=== PATIENT | male | born 1945 | race Caucasian/White ===

== ENCOUNTER 2018-10-13 11:12 | Outpatient (REF) | payer MEDICARE, BC, SELFPAY ==
[2018-10-13 19:55] LABS: Anion Gap 7.1 mmol/L (3-11); BUN 19 mg/dL (7-18); CO2 29.9 mmol/L (21.0-32.0); CREATININE 0.94 mg/dL (0.70-1.30); Chloride 102 mmol/L (98-107); Glucose 111 mg/dL (70-100); Potassium 4.2 mmol/L (3.5-5.1); Sodium 139 mmol/L (136-145)
== END 2018-10-13 11:32 ==
LOC: NCHCN 11:12
PROVIDERS: PCP Physician Assistant Medical; Visit Provider Physician Assistant Medical
DX: I10 Essential (primary) hypertension (principal)
CPT/HCPCS: 80048

== ENCOUNTER 2019-10-29 17:11 | Outpatient (REF) | payer MEDICARE, BC, SELFPAY ==
[2019-10-29 19:57] LABS: Anion Gap 9.1 mmol/L (3-11); BUN 17 mg/dL (7-18); CO2 28.9 mmol/L (21.0-32.0); CREATININE 1.14 mg/dL (0.70-1.30); Calcium 9.3 mg/dL (8.5-10.1); Chloride 100 mmol/L (98-107); Glucose 96 mg/dL (74-106); Sodium 138 mmol/L (136-145)
[2019-10-29 19:58] LABS: Hemoglobin A1C 5.9 % (3.8-5.6)
[2019-11-02 10:25] LABS: PSA, Screening 0.3 ng/mL (0.0-6.5)
== END 2019-10-29 17:31 ==
LOC: NCHCN 17:11
PROVIDERS: PCP Nurse Practitioner Family; Visit Provider Nurse Practitioner Family
DX: I10 Essential (primary) hypertension (principal); R73.9 Hyperglycemia, unspecified; Z12.5 Encounter for screening for malignant neoplasm of prostate
CPT/HCPCS: 80048; 84153; 83036

== ENCOUNTER 2020-05-02 20:38 | Outpatient (REF) | payer MEDICARE, BC, SELFPAY ==
[2020-05-02 19:13] LABS: Anion Gap 7.1 mmol/L (3-11); BUN 16 mg/dL (7-18); CO2 28.9 mmol/L (21.0-32.0); Calcium 9.5 mg/dL (8.5-10.1); Chloride 102 mmol/L (98-107); Estimated GFR 54.26 (mL/min/1.73m2); Glucose 88 mg/dL (74-106); Sodium 138 mmol/L (136-145)
[2020-05-02 19:29] LABS: Hemoglobin A1C 5.9 % (<5.7)
--- OUTSIDE RECORDS SUMMARY | 2020-05-02 20:42 | XMS_ITS ---
:1945 Author Care Team Providers Name Role Phone SHELTON DOTY MD General Surgeon [phone] OLENA CONNELLY NP Primary Care Provider [phone] Allergies Code Code System Name Reaction Severity Status Onset NKDA ? Medications Name Status Start Date Stop Date ? ? aspirin 81 mg tablet,delayed release Active ? Not available Take 1 tablet every day by oral route. hydrochlorothiazide 25 mg tablet Active ? Not available simvastatin 20 mg tablet Active ? Not susan ilable triamcinolone acetonide 0.1 % topical cream Active ? Not available APPLY A THIN LAYER TO THE AFFECTED AREA(S) BY TOPICAL ROUTE 2 T IMES PER DAY Problems Name Status Onset Date Source ? Hyperlipidemia Active 12/24/2019 ? Hypertensive Disorder Active 12/24/2019 ? Ventricular Premature Beats Active 12/24/2019 ? Blood Glucose Abnormal Active 12/24/2019 ? Occult Blood Screening Active 12/24/2019 ? Procedures Date Name Performed by ? 02/02/2020 Colonoscopy Information not avai lable Notes: polyp of colon 09/08/2007 Colonoscopy Information not avai lable Notes: rectal polyp 05/13/1952 Tonsillectomy Information not avai lable ? Hernia Repair Inguinal Information not a vailable Notes: right Results Lab Results Date Name Specimen Result Interpretation Description Value Range Status Address ? 02/02/2020 Pathology TISS ? Report (see ? Final No rth Study below) [facility] L ab (Internal) : [address] 08/14/2016 Venipuncture BLD ? Venpn* ? ? Final [facility] L ab (Internal) : [address] 08/14/2016 Neutrophil BLD ? Anc-manual 3.59 ? Gabriela Gerber Count, 10*3/uL [facility] (Anc), Blood (Int ernal): [address] 08/14/2016 Differential, BLD ? Polys 61 % 40-75 % [facility] Manual, Blood Cou [facility] L ab (Internal) : [address] t ? ? BLD ? Bands 0 % 0-5 % Final [facility] L ab (Internal) : [address] t ? ? BLD ? Lymphs 21 % 20-50 % Final [facility] L ab (Internal) : [address] t ? ? BLD [place] 17 % 2-10 % Final [facility] L ab (Internal) : [address] t ? ? BLD ? Eos 0 % 0-6 % Final [facility] L ab (Internal) : [address] t ? ? BLD ? Baso 0 % 0-1 % Final [facility] L ab (Internal) : [address] t ? ? BLD ? Atyp Lymph 1 % ? Final [facility] ab (Internal) : [address] t ? ? BLD ? Plts, Est. adequate adequate Final N [facility] L ab (Internal) : [address] t ? ? BLD ? RBC normal normal Final [facility] L ab (Internal) : [address] 08/14/2016 Lipid Panel, S High Chol 236 mg/dL 50-200 Gabriela l [place] Serum mg/dL [facility] L [facility] (Internal) : [address] t ? ? S ? Trig 144 mg/dL 10-150 Final [place] mg/dL [facility] L [facility] (Internal) : [address] t ? ? S ? Hdl 45 mg/dL 40-60 Final [place] mg/dL [facility] (Internal) : [address] t ? ? S High Ldl 162 mg/dL 0-130 Final [place] mg/dL [facility] L [facility] (Internal) : [address] 08/14/2016 CBC W/ Auto BLD ? Wbc 5.9 5.0-10.0 Final [place] Diff 10*3/uL 10*3/uL [facility] (Internal) : [address] ? ? BLD ? Rbc 5.21 4.60-6.00 Final [place] 10*6/uL 10*6/uL [facility] (Internal) : [address] ? ? BLD ? Hgb 16.0 g/dL 14.0-18.0 Final [facility] g/dL [facility] : [address] t ? ? BLD ? Hct 47.9 % 41.0-51.0 Final [facility] L [facility] (Internal) : [address] t ? ? BLD ? Mcv 91.9 fL 80.0-96.0 Final [place] fL [facility] L ab (Internal) : [address] t ? ? BLD ? Mch 30.7 pg 26.0-32.0 Final [place] pg [facility] L [facility] (Internal) : [address] t ? ? BLD ? Mchc 33.4 g/dL 31.0-35.0 Final [facility] g/dL [facility] ([facility] : [address] t ? ? BLD ? Rdw 12.3 % 11.5-14.5 Final [facility] (Internal) : [address] t ? ? BLD ? Plt 182 130-450 Final [place] 10*3/uL 10*3/uL [facility] ([facility]) : [address] 08/14/2016 BMP, Serum or S ? g/r 96 mg/dL 74-106 Gabriela l [place] Plasma mg/dL [facility] (Internal) : [address] t ? ? S ? Bun 15 mg/dL 9-20 Final [place] mg/dL [facility] L [facility] (Internal) : [address] t ? ? S ? Crea 1.00 0.66-1.25 Final [facility] mg/dL mg/dL [facility] ([facility]) : [address] t ? ? S ? Ca 9.2 mg/dL 8.4-10.2 Final [facility] mg/dL [facility] ([facility]) : [address] t ? ? S ? Na 140 137-145 Final [place] mmol/L mmol/L [facility] (Internal) : [address] t ? ? S ? K 3.8 3.5-5.1 Final [place] mmol/L mmol/L [facility] (Internal) : [address] ? ? S ? Cl 101 98-107 Final [place] mmol/L mmol/L [facility] (Internal) : [address] ? ? S ? Tco2 28.0 22.0-30.0 Final [place] mmol/L mmol/L [facility] (Internal) : [address] 08/14/2016 TSH, Serum or S ? Tsh 2.55 0.47-4.68 Fin al [place] Plasma u[IU]/mL u[IU]/mL [facility] L ab (Internal) : [address] Past Encounters 12/30/2019 Stool DNA-based Colorectal Cancer Screen ing Positive; Diastasis Recti Shelton Doty MD: [address], [place] [address], Ph. Social History Tobacco Smoking Status Never Smoker Vaccine List None recorded. Plan of Care Reminders Provider Appointments None ? ? recorded. Lab None ? ? recorded. Referral None ? ? recorded. Procedures None ? ? recorded. Surgeries None ? ? recorded. Imaging None ? ? recorded. Vitals 12/30/2019 10:30AM Office 15 Height Weight BMI Blood Pressure 167.01 cm 74.98 kg 26.9 kg/m2 158/80 mm[Hg] 11/07/2019 Height Weight BMI Blood Pressure 167.01 cm 75.47 kg 27.1 kg/m2 128/80 mm[Hg]
== END 2020-05-02 20:58 ==
LOC: NCHCN 20:38
PROVIDERS: PCP Nurse Practitioner Family; Visit Provider Nurse Practitioner Family
DX: R73.03 Prediabetes (principal); I10 Essential (primary) hypertension
CPT/HCPCS: 80048; 83036

== ENCOUNTER 2021-01-27 02:48 | Outpatient (CLI) | payer MEDICARE, BC, SELFPAY ==
[2021-01-27 13:21] LABS: Source Nasal/Nares
[2021-01-27 16:55] LABS: COVID-19 PCR Negative (Negative)
== END 2021-01-27 02:49 | disposition home or self-care (01) ==
PROVIDERS: PCP Nurse Practitioner Family; Visit Provider Ophthalmology
DX: Z20.822 Contact with and (suspected) exposure to COVID-19 (principal); Z01.818 Encounter for other preprocedural examination
CPT/HCPCS: 87635

== ENCOUNTER 2021-01-30 09:31 | Day surgery (SDC) | payer MEDICARE, BC, SELFPAY ==
[2021-01-30 10:00] VITALS: BP 149/88; PULSE 52; RESP 16; TEMP 36.5; O2SAT 99
[2021-01-30] MEDS: Tropicam./Phenyleph. (1/2.5%) 5 ML BTL OD ×3 (10:07→10:21)
--- NOTE | 2021-01-30 10:17 | W.ANESPRE ---
General Info Date of Service Date Performed: 01/30/21 Height: 5 ft 6 in Weight: 74.7 kg Body Mass Index (BMI): 26.6 Surgical Procedure: Operation Date: 01/30/21 12:40 Proposed Procedures Side Surgeon p Cataract Extraction with IOL Implant Right Nabil Hahn MD Meds Allergies and Home Medications Allergies Allergy/AdvReac Type Severity Reaction Status Date / Time No Known Allergies Allergy Unverified 01/27/21 11:01 Home Medication Medication Instructions Recorded hydrochlorothiazide 25 mg PO DAILY 01/26/21 simvastatin 20 mg PO HS 01/26/21 triamcinolone acetonide 1 applic TOPICAL BID 01/26/21 Current Visit Medications: Current Medications Generic Name Dose Route Start Last Admin Trade Name Freq PRN Reason Stop Dose Admin Acetaminophen 1,000 mg 01/30/21 06:00 Acetaminophen 500 Mg Tab PO Q4H PRN PRN Miscellaneous Medication 0 ml 01/30/21 06:00 Prednisolone 1%, Moxifloxacin 0.5%, Nepafenac 0.1% 5ml Btl OD DIRECTED KAHLIL Miscellaneous Medication 0 ml 01/30/21 06:00 01/30/21 10:12 Tropicam./Phenyleph. 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 Cortical cataract of right eye H26.9 Nuclear sclerotic cataract of right eye H25.11 Medical History Medical History Actinic keratosis Cataract Essential hypertension Surgical History Surgical History H/O inguinal hernia repair Hx of tonsillectomy Tobacco Smoking/Tobacco Use Status: Never Alcohol Alcohol Intake: current Alcohol intake frequency: holidays/special occasions only Alcohol type: beer Substance Use Substance use: Never Substance use type: does not use Vital Signs and Lab Results Vital Signs Most Recent Vital Signs in EMR: Most Recent Vital Signs Temp Pulse Resp BP Pulse Ox 36.5 C 52 L 16 149/88 H 99 01/30/21 10:00 01/30/21 10:00 01/30/21 10:00 01/30/21 10:00 01/30/21 10:00 Lab Results Blood Type / Crossmatch: No Data to Display Complete Blood Count: No Data to Display Complete Metabolic Panel: No Data to Display Liver Function Panel: No Data to Display Coagulation Panel: No Data to Display Cardiac Panel: No Data to Display Arterial Blood Gas: No Data to Display Venous Blood Gas: No Data to Display Pancreas Panel: No Data to Display Thyroid Panel: No Data to Display Infectious Disease: Coronavirus (COVID-19)(PCR) Negative (Negative) 01/27/21 10:40 01/27/21 Coronavirus 2019 Source Nasal/Nares 01/27/21 10:40 01/27/21 Blood Cultures: No Data to Display Toxicology Panel: No Data to Display Anesthesia Assessment and Plan Anesthesia History Personal History: No History of Anesthesia Complications Family History: No Family History of Anesthesia Complications Exercise Tolerance Exercise Tolerance: Metabolic Equivalents>4 Pertinent Negatives Pertinent Negatives: No Symptoms of GERD, No Major Cardiovascular Symptoms or Complaints, No Major Pulmonary Symptoms or Complaints and No History of CVA/TIA Cardiac & Pulmonary Exam Cardiac Exam: Normal S1/S2 Heart Sounds Pulmonary Exam: Clear Bilateral Breath Sounds Airway Exam Known Difficult Airway: No Mallampati Class: 2 Mouth Opening: Normal (> 3cm) Thyromental Distance: Greater than 3 cm Neck Range of Motion: Full ROM Neck Circumference: Normal Teeth Condition: Normal Dentition ASA Classification ASA Score: ASA 2 Emergency Case?: No NPO Status NPO Status: NPO Clears >2 hours, Solids >8 hours Anesthesia Plan Resuscitation Status: Full Code Anesthesia Technique: MAC Anesthesia Airway Planned: Natural Airway Monitors Used: Standard Monitors
[2021-01-30 10:31] VITALS: BMI 26.6
[2021-01-30] MEDS: Povidone-Iodine Ophth 30 ML BTL (11:10)
[2021-01-30] MEDS: Lidocaine 2% Jelly 6 ML SYR (11:10)
[2021-01-30] MEDS: Balanced Salt Soln.-PLUS 500 ML BAG (11:10)
[2021-01-30] MEDS: Tetracaine 0.5% 4 ML BTL OD (11:11)
[2021-01-30] MEDS: Lidocaine 1% Pres-Free 5 ML VIAL (11:11)
[2021-01-30] MEDS: Duovisc Viscoelastic System EACH 1 EACH (11:12)
--- NOTE | 2021-01-30 11:23 | W.ANESPOSTOP ---
Postoperative Evaluation Date, Time and Location Date Performed: 01/30/21 Time Performed: 11:34 Patient Location: Day Surgery Unit Vital Signs Most Recent Imported Vital Signs: Most Recent Vital Signs Temp Pulse Resp BP Pulse Ox 36.5 C 52 L 16 149/88 H 99 01/30/21 10:00 01/30/21 10:00 01/30/21 10:00 01/30/21 10:00 01/30/21 10:00 Most Recent Manually Entered Vital Signs: Adult Blood Pressure: 179/88 Heart Rate: 77 Respirations: 16 Oxygen Saturation (%): 97 Temperature (C): 37 C Pain Score (0-10 Scale): 0 Pain Score Most Recent Pain Score: Most Recent Pain Score Pain Level 1 01/30/21 10:00 Assessment Mental Status: Awake (Alert & Oriented to Patient Baseline) Airway and Respiratory Function: Patent airway with normal (patient baseline) respiratory exam Cardiovascular Function: Hemodynamically Stable Hydration Status: Adequately Hydrated Nausea & Vomiting: No Nausea or Vomiting Pain: Pt. Denies Any Pain Peripheral Nerve Block: Other (Local by Dr. Hahn)
[2021-01-30 11:33] VITALS: BP 179/88; PULSE 78; RESP 18; TEMP 37; O2SAT 98
--- NOTE | 2021-01-30 11:34 | W.PM.DSUDISC ---
Discharge Plan Disposition Patient Disposition: HOME Condition: Good Discharge Details Attending Provider: Nabil Hahn Primary Care Provider: Allison Joaquin Home Meds and New Rx's Prescriptions: No Action triamcinolone acetonide 0.1 % Cream 1 applic TOPICAL BID RF: 0 simvastatin 20 mg Tablet 20 mg PO HS RF: 0 hydrochlorothiazide 25 mg Tablet 25 mg PO DAILY RF: 0 Discharge Instructions Stand Alone Forms: Post-op Topical Cataract Discharge Orders Discharge Orders: Discharge Order (Routine); Ordered 01/30/21 Ordered By: Nabil Hahn DS: Diagnosis Discharge Diagnosis (1) Posterior subcapsular age-related cataract, right eye: Status: Resolved (2) Cortical cataract of right eye: Status: Resolved (3) Nuclear sclerotic cataract of right eye: Status: Resolved
[2021-01-30 11:35] VITALS: BP 179/88; PULSE 77; RESP 16; TEMPC 37; O2SAT 97
--- NOTE | 2021-01-30 11:35 | W.PM.OP ---
Date of service: 01/30/21 Time of Service: 11:35 Operative Note Operative Note DATE OF PROCEDURE: 01/30/21 PRE-OP DIAGNOSIS: Nuclear/cortical/posterior subcapsular cataract, right eye POST-OP DIAGNOSIS: same PROCEDURE: Cataract extraction using phacoemulsification with intraocular lens implant, right eye SURGEON: Nabil Hahn ANESTHESIA TYPE: Local By Surgeon and MAC Refer to Anesthesia Record ESTIMATED BLOOD LOSS: 0 PATHOLOGY: none sent COMPLICATIONS: None Patient was transported to: same day Patient's condition: stable Implants: Er[employer] & Erasto/YAHAIRA Tecnis [id number] Indications: Progressive visual loss due to cataract, right eye Procedure Description: CATARACT SURGERY OPERATIVE REPORT PREOPERATIVE DIAGNOSIS: 1. Nuclear/cortical/posterior subcapsular cataract, right eye POSTOPERATIVE DIAGNOSIS: Same OPERATION: 1. Cataract extraction using phacoemulsification with posterior chamber intraocular lens implant, right eye. IOL: IOL Hotel Concierge/Model: Erast[employer] Erasto / YAHAIRA Tecnis [id number] IOL Power: + 26.0 diopters IOL Serial Number: [id number] Optic Diameter: 6.0mm Haptic/Overall Diameter: 13.0mm PHACO INFO: Gene SuperMamaurion Vision System with OZil and Active Fluidics Cumulative Dispersed Energy (CDE): 3.66 seconds SURGEON: Nabil Hahn MD, ZAID ANESTHESIA: Monitored Anesthesia Care (MAC), with local sub-tenon's anesthetic infiltration COMPLICATIONS: None SPECIMENS: None INDICATIONS FOR PROCEDURE: The patient is a 75-year-old gentleman with history of diminished visual acuity in his right eye secondary to the development of nuclear/cortical/posterior subcapsular cataract of the right eye. The option of cataract surgery was offered to the patient and he wished to proceed. PROCEDURE: The correct surgical eye was identified and marked as the right eye and the pupil was dilated in the preoperative area using mydriatics and cycloplegics. The dilated pupil size was 7.0 mm. He elected to proceed without oral sedation.. The patient was brought to the operating room where cardiopulmonary monitoring was instituted and surgical time-out was performed, confirming the correct operative eye and IOL power. Topical anesthesia was administered and ophthalmic povidone-iodine 5% was instilled into the conjunctival fornices. Lidocaine gel was applied to the cornea and the antonio-ocular area was prepped with Betadine 10% solution and draped in the usual sterile fashion for intraocular surgery, including an aperture drape. A Tegaderm transparent film dressing was cut in half and used to cover the lashes and lid margins. Care was taken to sequester the lashes and lid margins under the Tegaderm dressing. A lid speculum was placed between the lids of the operative eye and the Devora-Debra operating microscope was maneuvered into position. Kat scissors were then used to make a conjunctival buttonhole approximately 6mm posterior to the limbus in the inferonasal quadrant. Blunt dissection was carried out to expose bare sclera, and a blunt-tipped sub-tenon?s anesthesia cannula was introduced and passed posteriorly along the globe where non-preserved plain lidocaine was injected into posterior sub-Tenon?s space. A sideport knife was used to make a paracentesis port inferotemporally. Intraocular phenylephrine/lidocaine was injected into the anterior chamber. The anterior chamber was filled with viscoelastic. A 2.4mm keratome knife was used to create a half-thickness groove at the limbus and then to construct a three-plane near-clear corneal tunnel extending 2.0mm into clear cornea superiortemporally. A flap was raised on the anterior capsule and capsulorhexis forceps were used to complete a continuous curvilinear capsulorhexis of 5.0 mm. Balanced salt solution was then used to perform cortical cleaving hydrodissection and nuclear hydrodelineation until the lens could be freely rotated within the capsular bag. The lens nucleus was then disassembled and removed within the capsular bag and iris plane using phacoemulsification. Residual cortical material was removed using the I/A handpiece. The posterior capsule was carefully polished to remove as much residual lens epithelial cells as safely possible. The capsular bag was then inflated and the anterior chamber deepened with viscoelastic. The lens implant described above was inserted into the capsular bag using the YAHAIRA [place] Injector. A Kuglen hook was used to dial the IOL into position. Residual viscoelastic was then removed first from posterior to the IOL, then from the anterior chamber using the I/A handpiece. The lens implant was noted to center nicely within the capsular bag. The incisions were stromally hydrated, and the anterior chamber was reformed using BSS. Then 0.5cc of moxifloxacin 1.0mg/ml were injected into the capsular bag and anterior chamber. The incisions were checked with a Weck spear and found to be secure. Several drops of ophthalmic povidone-iodine 5% were then applied to the eye followed by two drops of Imprimis combination prednisolone/moxifloxacin/nepafenac solution. The drapes were removed and a clear plastic protective eye shield was placed over the eye. The patient was then returned to Same Day Surgery in stable condition.
== END 2021-01-30 11:55 | disposition home or self-care (01) ==
PROVIDERS: PCP Nurse Practitioner Family; Visit Provider Ophthalmology
PROC: (CPT 66984; principal; 2021-01-30 12:30)
DX: H25.041 Posterior subcapsular polar age-related cataract, right eye (principal); I10 Essential (primary) hypertension
CPT/HCPCS: 66984; V2632

== ENCOUNTER 2021-02-10 02:02 | Outpatient (CLI) | payer MEDICARE, BC, SELFPAY ==
[2021-02-10 11:01] LABS: Source Nasal/Nares
[2021-02-10 13:36] LABS: COVID-19 PCR Negative (Negative)
== END 2021-02-10 02:03 | disposition home or self-care (01) ==
LOC: LBO 02:06
PROVIDERS: PCP Nurse Practitioner Family; Visit Provider Ophthalmology
DX: Z20.822 Contact with and (suspected) exposure to COVID-19 (principal); Z01.818 Encounter for other preprocedural examination
CPT/HCPCS: 87635

== ENCOUNTER 2021-02-13 09:32 | Day surgery (SDC) | payer MEDICARE, BC, SELFPAY ==
[2021-02-13 09:49] VITALS: BP 146/94; PULSE 55; RESP 16; TEMP 36.3; O2SAT 100
[2021-02-13] MEDS: Tropicam./Phenyleph. (1/2.5%) 5 ML BTL OS ×3 (09:59→10:09)
--- NOTE | 2021-02-13 10:40 | W.ANESPRE ---
General Info Date of Service Date Performed: 02/13/21 Height: 5 ft 6 in Weight: 74.9 kg Body Mass Index (BMI): 26.6 Surgical Procedure: Operation Date: 02/13/21 12:40 Proposed Procedures Side Surgeon p Cataract Extraction with IOL Implant Left Nabil Hahn MD Meds Allergies and Home Medications Allergies Allergy/AdvReac Type Severity Reaction Status Date / Time No Known Allergies Allergy Verified 02/13/21 09:48 Home Medication Medication Instructions Recorded hydrochlorothiazide 25 mg PO DAILY 01/26/21 simvastatin 20 mg PO HS 01/26/21 triamcinolone acetonide 1 applic TOPICAL BID 01/26/21 Current Visit Medications: Current Medications Generic Name Dose Route Start Last Admin Trade Name Freq PRN Reason Stop Dose Admin Acetaminophen 1,000 mg 02/13/21 06:00 Acetaminophen 500 Mg Tab PO Q4H PRN PRN Miscellaneous Medication 0 ml 02/13/21 06:00 Prednisolone 1%, Moxifloxacin 0.5%, Nepafenac 0.1% 5ml Btl OS DIRECTED KALHIL Miscellaneous Medication 0 ml 02/13/21 06:00 02/13/21 10:09 Tropicam./Phenyleph. 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 cataract, right eye H25.041 Medical History Medical History Actinic keratosis Cataract Essential hypertension Surgical History Surgical History H/O inguinal hernia repair History of cataract surgery Hx of tonsillectomy Tobacco Smoking/Tobacco Use Status: Never Alcohol Alcohol Intake: current Alcohol intake frequency: holidays/special occasions only Alcohol type: beer Substance Use Substance use: Never Substance use type: does not use Vital Signs and Lab Results Vital Signs Most Recent Vital Signs in EMR: Most Recent Vital Signs Temp Pulse Resp BP Pulse Ox 36.3 C L 55 L 16 146/94 H 100 02/13/21 09:49 02/13/21 09:49 02/13/21 09:49 02/13/21 09:49 02/13/21 09:49 Lab Results Blood Type / Crossmatch: No Data to Display Complete Blood Count: No Data to Display Complete Metabolic Panel: No Data to Display Liver Function Panel: No Data to Display Coagulation Panel: No Data to Display Cardiac Panel: No Data to Display Arterial Blood Gas: No Data to Display Venous Blood Gas: No Data to Display Pancreas Panel: No Data to Display Thyroid Panel: No Data to Display Infectious Disease: Coronavirus (COVID-19)(PCR) Negative (Negative) 02/10/21 09:40 02/10/21 Coronavirus 2019 Source Nasal/Nares 02/10/21 09:40 02/10/21 Blood Cultures: No Data to Display Toxicology Panel: No Data to Display Anesthesia Assessment and Plan Anesthesia History Personal History: No History of Anesthesia Complications Family History: No Family History of Anesthesia Complications Exercise Tolerance Exercise Tolerance: Metabolic Equivalents>4 Pertinent Negatives Pertinent Negatives: No Symptoms of GERD, No Major Cardiovascular Symptoms or Complaints, No Major Pulmonary Symptoms or Complaints and No History of CVA/TIA Cardiac & Pulmonary Exam Cardiac Exam: Normal S1/S2 Heart Sounds Pulmonary Exam: Clear Bilateral Breath Sounds Airway Exam Known Difficult Airway: No Mallampati Class: 2 Mouth Opening: Normal (> 3cm) Thyromental Distance: Greater than 3 cm Neck Range of Motion: Full ROM Neck Circumference: Normal Teeth Condition: Normal Dentition ASA Classification ASA Score: ASA 2 Emergency Case?: No NPO Status NPO Status: NPO Clears >2 hours, Solids >8 hours Anesthesia Plan Resuscitation Status: Full Code Anesthesia Technique: MAC Anesthesia Airway Planned: Natural Airway Monitors Used: Standard Monitors
[2021-02-13 10:47] VITALS: BMI 26.6
[2021-02-13] MEDS: Tetracaine 0.5% 4 ML BTL OS (10:57)
[2021-02-13] MEDS: Povidone-Iodine Ophth 30 ML BTL ×2 (10:58→11:20)
[2021-02-13] MEDS: Lidocaine 2% Jelly 6 ML SYR (10:58)
[2021-02-13] MEDS: Lidocaine 1% Pres-Free 5 ML VIAL (11:04)
[2021-02-13] MEDS: Balanced Salt Soln.-PLUS 500 ML BAG (11:05)
[2021-02-13] MEDS: Duovisc Viscoelastic System EACH 1 EACH (11:05)
[2021-02-13 11:26] VITALS: BP 135/77; PULSE 57; RESP 16; TEMP 36.4; O2SAT 97
--- NOTE | 2021-02-13 11:26 | W.PM.DSUDISC ---
Discharge Plan Disposition Patient Disposition: HOME Condition: Good Discharge Details Attending Provider: Nabil Hahn Primary Care Provider: Allison Joaquin Home Meds and New Rx's Prescriptions: No Action triamcinolone acetonide 0.1 % Cream 1 applic TOPICAL BID RF: 0 simvastatin 20 mg Tablet 20 mg PO HS RF: 0 hydrochlorothiazide 25 mg Tablet 25 mg PO DAILY RF: 0 Discharge Instructions Stand Alone Forms: Post-op Topical Cataract, Juan Jade (DSU) Discharge Orders Discharge Orders: Discharge Order (Routine); Ordered 02/13/21 Ordered By: Nabil Hahn DS: Diagnosis Discharge Diagnosis (1) Cortical cataract of left eye: Status: Resolved (2) Nuclear sclerotic cataract of left eye: Status: Resolved
--- NOTE | 2021-02-13 11:27 | W.ANESPOSTOP ---
Postoperative Evaluation Date, Time and Location Date Performed: 02/13/21 Time Performed: 11:27 Patient Location: Day Surgery Unit Vital Signs Most Recent Imported Vital Signs: Most Recent Vital Signs Temp Pulse Resp BP Pulse Ox 36.3 C L 55 L 16 146/94 H 100 02/13/21 09:49 02/13/21 09:49 02/13/21 09:49 02/13/21 09:49 02/13/21 09:49 Most Recent Manually Entered Vital Signs: Adult Blood Pressure: 135/77 Heart Rate: 60 Respirations: 12 Oxygen Saturation (%): 99 Temperature (C): 36.3 C Pain Score (0-10 Scale): 0 Pain Score Most Recent Pain Score: Most Recent Pain Score Pain Level 0 02/13/21 09:49 Assessment Mental Status: Awake (Alert & Oriented to Patient Baseline) Airway and Respiratory Function: Patent airway with normal (patient baseline) respiratory exam Cardiovascular Function: Hemodynamically Stable Hydration Status: Adequately Hydrated Nausea & Vomiting: No Nausea or Vomiting Pain: Pt. Denies Any Pain Peripheral Nerve Block: Patient did not receive a nerve block
--- NOTE | 2021-02-13 11:27 | W.PM.OP ---
Date of service: 02/13/21 Time of Service: 11:27 Operative Note Operative Note DATE OF PROCEDURE: 02/13/21 PRE-OP DIAGNOSIS: Nuclear/cortical cataract, left eye POST-OP DIAGNOSIS: same PROCEDURE: Cataract extraction using phacoemulsification with intraocular lens implant, left eye SURGEON: Nabil Hahn ANESTHESIA TYPE: Local By Surgeon and MAC Refer to Anesthesia Record PATHOLOGY: none sent COMPLICATIONS: None Patient was transported to: same day Patient's condition: stable Implants: Er[employer] / [employer] Tecnis [id number] Indications: Progressive decreased vision due to cataract, left eye, with poor red reflex Procedure Description: CATARACT SURGERY OPERATIVE REPORT PREOPERATIVE DIAGNOSIS: 1. Nuclear/cortical cataract, left eye POSTOPERATIVE DIAGNOSIS: Same OPERATION: 1. Cataract extraction using phacoemulsification with posterior chamber intraocular lens implant, left eye. IOL: IOL Orthotics Assistant/Model: [employer] / YAHAIRA Tecnis [id number] IOL Power: + 23.5 diopters IOL Serial Number: [id number] Optic Diameter: 6.0 mm Haptic/Overall Diameter: 13.0 mm PHACO INFO: Gene Optherionurion Vision System with OZil and Active Fluidics Cumulative Dispersed Energy (CDE): 7.89 seconds SURGEON: Nabil Hahn MD, ZAID ANESTHESIA: Monitored A [facility] (MAC), with local sub-tenon's anesthetic infiltration COMPLICATIONS: None SPECIMENS: None INDICATIONS FOR PROCEDURE: The patient is a 75-year-old gentleman with history of diminished visual acuity in both eyes secondary 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 He has already undergone cataract surgery in the right eye and is doing well postoperatively. He now presents for cataract surgery in the left eye. PROCEDURE: The correct surgical eye was identified and marked as the left eye and the pupil was dilated in the preoperative area using mydriatics and cycloplegics. The dilated pupil size was 7.0 mm. He elected to proceed without oral sedation.. The patient was brought to the operating room where cardiopulmonary monitoring was instituted and surgical time-out was performed, confirming the correct operative eye and IOL power. Topical anesthesia was administered and ophthalmic povidone-iodine 5% was instilled into the conjunctival fornices. Lidocaine gel was applied to the cornea and the antonio-ocular area was prepped with Betadine 10% solution and draped in the usual sterile fashion for intraocular surgery, including an aperture drape. A Tegaderm transparent film dressing was cut in half and used to cover the lashes and lid margins. Care was taken to sequester the lashes and lid margins under the Tegaderm dressing. A lid speculum was placed between the lids of the operative eye and the Devora-Debra operating microscope was maneuvered into position. Kat scissors were then used to make a conjunctival buttonhole approximately 6mm posterior to the limbus in the inferonasal quadrant. Blunt dissection was carried out to expose bare sclera, and a blunt-tipped sub-tenon?s anesthesia cannula was introduced and passed posteriorly along the globe where non-preserved plain lidocaine was injected into posterior sub-Tenon?s space. A sideport knife was used to make a paracentesis port superiorly/superiortemporally. Intraocular phenylephrine/lidocaine was injected int the anterior chamber.. The anterior chamber was filled with viscoelastic. A 2.4mm keratome knife was used to create a half-thickness groove at the limbus and then to construct a three-plane near-clear corneal tunnel extending 2.0mm into clear cornea at the 3:00 position. A flap was raised on the anterior capsule and capsulorhexis forceps were used to complete a continuous curvilinear capsulorhexis of 5.5 mm. Balanced salt solution was then used to perform cortical cleaving hydrodissection and nuclear hydrodelineation until the lens could be freely rotated within the capsular bag. The lens nucleus was then disassembled and removed within the capsular bag and iris plane using phacoemulsification. Residual cortical material was removed using the 45-degree angled silicone I/A tip with 0.3mm port. The posterior capsule was carefully polished to remove as much residual lens epithelial cells as safely possible. The capsular bag was then inflated and the anterior chamber deepened with viscoelastic. The lens implant described above was inserted into the capsular bag using the YAHAIAR [place] Injector. A Kuglen hook was used to dial the IOL into position. Residual viscoelastic was then removed first from posterior to the IOL, then from the anterior chamber using the I/A handpiece. The lens implant was noted to center nicely within the capsular bag. The incisions were stromally hydrated, and the anterior chamber was reformed using BSS. Then 0.5cc of moxifloxacin 1.0mg/ml were injected into the capsular bag and anterior chamber. The incisions were checked with a Weck spear and found to be secure. Several drops of ophthalmic povidone-iodine 5% were then applied to the eye followed by two drops of Imprimis combination prednisolone/moxifloxacin/nepafenac solution. The drapes were removed and a clear plastic protective eye shield was placed over the eye. The patient was then returned to [facility] Surgery in stable condition.
[2021-02-13 11:28] VITALS: BP 135/77; PULSE 60; RESP 12; TEMPC 36.3; O2SAT 99
== END 2021-02-13 11:45 | disposition home or self-care (01) ==
PROVIDERS: PCP Nurse Practitioner Family; Visit Provider Ophthalmology
PROC: (CPT 66984; principal; 2021-02-13 12:30)
DX: H25.12 Age-related nuclear cataract, left eye (principal); I10 Essential (primary) hypertension
CPT/HCPCS: 66984; V2632

== ENCOUNTER 2021-11-07 11:09 | Outpatient (REF) | payer MEDICARE, BC, SELFPAY ==
[2021-11-07 20:15] LABS: ALT 47 U/L (16-63); AST 28 U/L (15-37); Albumin 4.3 g/dL (3.4-5.0); Alkaline Phosphatase 101 U/L (46-116); Anion Gap 7.4 mmol/L (3-11); BUN 18 mg/dL (7-18); Bilirubin, Total 0.7 mg/dL (0.2-1.0); CO2 30.6 mmol/L (21.0-32.0); CREATININE 0.8 mg/dL (0.70-1.30); Calcium 9.1 mg/dL (8.5-10.1); Calculated LDL 115 mg/dL (<100); Chloride 99 mmol/L (98-107); Cholesterol 205 mg/dL (<200); Glucose 94 mg/dL (74-106); HDL Cholesterol 52 mg/dL (40-60); Potassium 3.7 mmol/L (3.5-5.1); Sodium 137 mmol/L (136-145); Total Protein 7.9 g/dL (6.4-8.2); Triglyceride 192 mg/dL (<150)
== END 2021-11-07 11:10 | disposition home or self-care (01) ==
LOC: NCHCN 11:09
PROVIDERS: PCP Nurse Practitioner Family; Visit Provider Nurse Practitioner Family
DX: I10 Essential (primary) hypertension (principal); E78.5 Hyperlipidemia, unspecified; R73.03 Prediabetes
CPT/HCPCS: 80053; 80061

== ENCOUNTER 2021-11-20 10:46 | Outpatient (REF) | payer MEDICARE, BC, SELFPAY ==
--- NOTE | 2021-11-20 08:15 | SKI_PTH ---
PATIENT: Chriss Spencer LOC: [facility] U#:[id number] AGE/SX: 76/M ROOM: RE11/20/[address]: Chey Bullock : 1945 BED: DIS: 11/20/2021 SPEC #: [id number] RECD: 11/21/21 12:01 STATUS: VALENTIN CHRIS #: [id number] DONALD: 11/20/21 08:[address] RECD BY: Maribeth Cameron ENTERED: 11/21/21 12:02 SP TYPE: REBECA LIN DR: Allison Joaquin Tissues: 1 - SKIN BIOPSY(SHAVE/PUNCH) Procedures: SKIN LEVEL 4 Comments: [id number]
== END 2021-11-20 10:47 | disposition home or self-care (01) ==
LOC: LBN 10:46
PROVIDERS: PCP Nurse Practitioner Family; Visit Provider Nurse Practitioner Family
DX: L98.9 Disorder of the skin and subcutaneous tissue, unspecified (principal)
CPT/HCPCS: 88305

== ENCOUNTER 2022-11-05 11:09 | Outpatient (REF) | payer MEDICARE, BC, SELFPAY ==
[2022-11-05 20:25] LABS: ALT 37 U/L (16-63); AST 28 U/L (15-37); Albumin 3.9 g/dL (3.4-5.0); Alkaline Phosphatase 95 U/L (46-116); Anion Gap 10.1 mmol/L (3-11); BUN 14 mg/dL (7-18); Bilirubin, Total 0.6 mg/dL (0.2-1.0); CO2 27.9 mmol/L (21.0-32.0); Calcium 9.1 mg/dL (8.5-10.1); Chloride 103 mmol/L (98-107); Estimated GFR 78.49 (mL/min/1.73m2); Glucose 104 mg/dL (74-106); Sodium 141 mmol/L (136-145); Total Protein 7.8 g/dL (6.4-8.2)
[2022-11-06 19:09] LABS: PSA, Screening 0.4 ng/mL (<=6.5)
== END 2022-11-05 11:10 | disposition home or self-care (01) ==
LOC: NCHCN 11:09
PROVIDERS: PCP Nurse Practitioner Family; Visit Provider Nurse Practitioner Family
DX: Z12.5 Encounter for screening for malignant neoplasm of prostate (principal); I10 Essential (primary) hypertension; E78.5 Hyperlipidemia, unspecified
CPT/HCPCS: 80053; 84153

== ENCOUNTER 2023-05-15 10:31 | Outpatient (REF) | payer MEDICARE, BC, SELFPAY ==
[2023-05-15 20:40] LABS: ALT 31 U/L (16-63); AST 23 U/L (15-37); Alkaline Phosphatase 93 U/L (46-116); Anion Gap 7.4 mmol/L (3-11); BUN 16 mg/dL (7-18); Bilirubin, Total 0.7 mg/dL (0.2-1.0); CO2 27.6 mmol/L (21.0-32.0); Calcium 9.3 mg/dL (8.5-10.1); Calculated LDL 105 mg/dL (<100); Chloride 102 mmol/L (98-107); Cholesterol 180 mg/dL (<200); Estimated GFR 78.49 (mL/min/1.73m2); Glucose 108 mg/dL (74-106); HDL Cholesterol 46 mg/dL (40-60); Potassium 3.8 mmol/L (3.5-5.1); Sodium 137 mmol/L (136-145); Total Protein 7.9 g/dL (6.4-8.2); Triglyceride 146 mg/dL (<150)
== END 2023-05-15 10:32 | disposition home or self-care (01) ==
LOC: NCHCN 10:31
PROVIDERS: PCP Nurse Practitioner Family; Visit Provider Nurse Practitioner Family
DX: E78.5 Hyperlipidemia, unspecified (principal)
CPT/HCPCS: 80053; 80061

== ENCOUNTER 2024-08-19 14:35 | Outpatient (REF) | payer MEDICARE, BC, SELFPAY ==
[2024-08-19 20:30] LABS: HCT 46.9 % (40.0-50.0); HGB 16.3 g/dL (13.5-17.5); MCH 31.5 pg (27.0-33.0); MCHC 34.8 % (32.0-36.0); MCV 91 fL (80-95); MPV 11.5 fL (8.0-11.0); Platelet Count 167 10^3/uL (130-400); RBC 5.18 10^6/uL (4.36-5.78); RDW 12.1 % (11.8-14.1); RDW-SD 40.2 fL; WBC 10.06 10^3/uL (4.4-10.8)
[2024-08-19 21:04] LABS: Uric Acid 7.3 mg/dL (3.5-7.2)
== END 2024-08-19 14:36 | disposition home or self-care (01) ==
LOC: NCHCN 14:35
PROVIDERS: PCP Nurse Practitioner Family; Visit Provider Nurse Practitioner Family
DX: M79.675 Pain in left toe(s) (principal)
CPT/HCPCS: 85027; 84550